=== PATIENT | male | born 1965 | race African-American/Black ===

== ENCOUNTER 2019-07-11 23:58 | Emergency (ER) | payer OTHER ==
[~2019-07-11] VITALS: Ht 175.3 cm; Wt 72.6 kg
--- NOTE | 2019-07-11 23:58 | NUR ---
ED Nurse Note: sitter by bed side
[2019-07-12] VITALS (10 sets, daily range): BP systolic 122–174; BP diastolic 65–93
--- NOTE | 2019-07-12 | NUR ---
ED Nurse Note: Patient was BIBA from home due to SI. Per [employer] patient wants to abbie himself, placed on 5150 by [employer]. Patient states that he is schizophrenic, and was noncompliant with medications. AAO x4, VSS at this time.
--- NOTE | 2019-07-12 00:01 | NUR ---
Eyad sterling in EDM - 07/12/19 at 0022 by [email or web address] ED Nurse Note: Patient was undressed, all belongings were placed in locker #2.
--- NOTE | 2019-07-12 00:02 | NUR ---
ED Nurse Note: Patient was undressed, all belongings were placed in locker #4.
--- NOTE | 2019-07-12 00:07 | NUR ---
ED Nurse Note: [employer] is here
[2019-07-12] MEDS ORDERED: MIRTAZAPINE45 MG ORAL (00:23)
[2019-07-12] MEDS ORDERED: QUETIAPINE FUM200 MG ORAL (00:23)
--- NOTE | 2019-07-12 00:30 | NUR ---
ED Nurse Note: During assessment by Dr. Rios patient becom agitated, combative, started screaming inappropriate words. As soon as left patient jumped out from the bed and started hit him self on the wall, wall was broken, no injuryes were noticed on the patient.
--- NOTE | 2019-07-12 00:32 | Emergency Room Report ---
History of Present Illness General Chief Complaint: Behavioral Complaint Source: Patient (Shelton Rios MD) Present Illness HPI Disclaimer: Please note that this report is being documented using [employer] technology. This can lead to erroneous entry secondary to incorrect interpretation by the dictating instrument. HPI: This is a 53-year-old male with a reported history of schizophrenia presenting to the emergency room for evaluation of changes in his mental status and thoughts of SI/HI. The patient is uncooperative with history and physical exam. Per EMS he was having thoughts of harming himself and others but could not elicit whether or not he had a specific plan. He states he has had been off his meds for some time. He reported hearing voices but could not elicit whether or not they are telling him to do anything or whether he had any visual hallucinations. During our interview the patient became very frustrated and refused to speak with me further. As soon as I left the room I was alerted by nursing staff that he was hitting his head against the wall. He struck the wall so hard as to put a hole in it. Security arrived to restrain the patient and put him in four-point restraints. Haldol was ordered. PMH: Schizophrenia PSH: Could not obtain Allergies: Could not obtain Social Hx: Reports drug use for several decades but does not expand on which drugs. (Shelton Rios MD) Allergies: Coded Allergies: No Known Allergies (Unverified , 07/11/19) Nursing Documentation-[facility] Past Medical History: No History, Except For (Shelton Rios MD) Review of Systems All Other Systems: limited - Patient uncooperative (Shelton Rios MD) Physical Exam Vital Signs Date Time Temp Pulse Resp B/P (MAP) Pulse Ox O2 Delivery O2 Flow Rate FiO2 07/11/19 23:51 97.5 117 19 174/93 (120) 98 Room Air General: Awake and alert, disheveled, agitated HEENT: NC/AT. EOMI. Cardiovascular: Could not assess Resp: Normal work of breathing. Unable to auscultate Abdomen: Could not assess Skin: Intact. No abrasions, laceration or rash over the exposed skin MSK: Normal tone and bulk. Moving all extremities. No obvious deformity. Neuro: Awake and alert. Reports auditory hallucinations. Reports SI/HI. Agitated and combative with staff. (Shelton Rios MD) Medical Decision Making Restraint Attestation I, Shelton Rios MD, have personally evaluated this patient. Laboratory tests have been reviewed and addressed accordingly. The patient is deemed to present a danger to themselves and/or others. This is based on the exam, history ( provided by patient, EMS/[employer] and/or family) and observed or reported behavior. Attempts for non-invasive measures have been considered and/or attempted, however, have been futile. It is in the best interest of the nursing staff, the patient, and others involved in this patient's care that behavioral restraints be applied. Patient evaluation reveals the following: Agitation, violent behavior, combativeness, danger to self and staff (Shelton Rios MD) Diagnostic Impression: Primary Impression: Suicidal intent Additional Impressions: Self-harming behavior Agitation Hypokalemia Cocaine abuse Medical clearance for psychiatric admission ER Course 53-year-old male with history of schizophrenia reportedly not taking his medication presents for evaluation of SI/HI. He was put on 5150 status by police. He is uncooperative with history and physical exam and hitting his head against the wall in the emergency department. He is now in four-point restraints for his own safety and for the safety of the staff. He was given intramuscular Haldol. Start broad metabolic, tox and infectious work-up as well as CT imaging of the head and cervical spine. He will require psychiatric evaluation. Laboratory Tests Test 07/12/19 00:20 White Blood Count 16.7 K/UL (4.8-10.8) H Red Blood Count 5.05 M/UL (4.70-6.10) Hemoglobin 16.3 G/DL (14.2-18.0) Hematocrit 45.2 % (42.0-52.0) Mean Corpuscular Volume 90 FL (80-99) Mean Corpuscular Hemoglobin 32.2 PG (27.0-31.0) H Mean Corpuscular Hemoglobin Concent 36.0 G/DL (32.0-36.0) Red Cell Distribution Width 13.5 % (11.6-14.8) Platelet Count 325 K/UL (150-450) Mean Platelet Volume 7.0 FL (6.5-10.1) Neutrophils (%) (Auto) 61.2 % (45.0-75.0) Lymphocytes (%) (Auto) 29.6 % (20.0-45.0) Monocytes (%) (Auto) 7.6 % (1.0-10.0) Eosinophils (%) (Auto) 0.6 % (0.0-3.0) Basophils (%) (Auto) 1.0 % (0.0-2.0) Urine Color Pale yellow Urine Appearance Clear Urine pH 5 (4.5-8.0) Urine Specific [place] 1.020 (1.005-1.035) Urine Protein 1+ (NEGATIVE) H Urine Glucose (UA) Negative (NEGATIVE) Urine Ketones Negative (NEGATIVE) Urine Blood Negative (NEGATIVE) Urine Nitrite Negative (NEGATIVE) Urine Bilirubin Negative (NEGATIVE) Urine Urobilinogen Normal MG/DL (0.0-1.0) Urine Leukocyte Esterase Negative (NEGATIVE) Urine RBC 0-2 /HPF (0 - 0) H Urine WBC 0-2 /HPF (0 - 0) Urine Squamous Epithelial Cells Occasional /LPF Urine Bacteria Occasional /HPF (NONE) Sodium Level 138 MMOL/L (136-145) Potassium Level 3.0 MMOL/L (3.5-5.1) L Chloride Level 101 MMOL/L (98-107) Carbon Dioxide Level 24 MMOL/L (21-32) Anion Gap 13 mmol/L (5-15) Blood Urea Nitrogen 11 mg/dL (7-18) Creatinine 1.0 MG/DL (0.55-1.30) Estimate Glomerular Filtration Rate > 60 mL/min (>60) Glucose Level 92 MG/DL (74-106) Calcium Level 9.0 MG/DL (8.5-10.1) Total Bilirubin 0.4 MG/DL (0.2-1.0) Aspartate Amino Transferase (AST) 28 U/L (15-37) Alanine Aminotransferase (ALT) 31 U/L (12-78) Alkaline Phosphatase 91 U/L (46-116) Total Protein 8.6 G/DL (6.4-8.2) H Albumin 3.5 G/DL (3.4-5.0) Globulin 5.1 g/dL Albumin/Globulin Ratio 0.7 (1.0-2.7) L Salicylates Level 5.1 ug/mL (2.8-20) Urine Opiates Screen Negative (NEGATIVE) Acetaminophen Level < 2 MCG/ML (10-30) L Urine Barbiturates Screen Negative (NEGATIVE) Phencyclidine (PCP) Screen Negative (NEGATIVE) Urine Amphetamines Screen Negative (NEGATIVE) Urine Benzodiazepines Screen Negative (NEGATIVE) Urine Cocaine Screen Positive (NEGATIVE) H Urine Marijuana (THC) Screen Negative (NEGATIVE) Serum Alcohol 181 mg/dL (Shelton Rios MD) ER Course Please note that the patient CT head was read as no acute disease Patient is further medically cleared and requires further psychiatric evaluation (Alessandro Carrion DO) ER Course Patient examined by me at 1430. He is calm and states he does not need anything but requests food. Titrate offered to patient. Awaiting placement as he is on a 5150 at this time. (Beny London MD) ER Course Is here on 5150 hold. Here for psychiatric evaluation. Has been medically cleared. Patient evaluated by Dr Garcia (psychiatry); agrees that patient is not a danger to self or others. Does not require emergent psychiatric evaluation. Patient is calm and cooperative during exam. 5150 hold will be lifted. Patient cleared from psychiatric standpoint I agree with her assessment that patient can be cleared. Will provide outpatient mental health referrals Labs Test 07/12/19 00:20 07/12/19 09:55 White Blood Count 16.7 K/UL (4.8-10.8) 8.7 K/UL (4.8-10.8) Red Blood Count 5.05 M/UL (4.70-6.10) 5.13 M/UL (4.70-6.10) Hemoglobin 16.3 G/DL (14.2-18.0) 15.7 G/DL (14.2-18.0) Hematocrit 45.2 % (42.0-52.0) 46.3 % (42.0-52.0) Mean Corpuscular Volume 90 FL (80-99) 90 FL (80-99) Mean Corpuscular Hemoglobin 32.2 PG (27.0-31.0) 30.6 PG (27.0-31.0) Mean Corpuscular Hemoglobin Concent 36.0 G/DL (32.0-36.0) 33.8 G/DL (32.0-36.0) Red Cell Distribution Width 13.5 % (11.6-14.8) 13.4 % (11.6-14.8) Platelet Count 325 K/UL (150-450) 297 K/UL (150-450) Mean Platelet Volume 7.0 FL (6.5-10.1) 7.4 FL (6.5-10.1) Neutrophils (%) (Auto) 61.2 % (45.0-75.0) 53.8 % (45.0-75.0) Lymphocytes (%) (Auto) 29.6 % (20.0-45.0) 33.8 % (20.0-45.0) Monocytes (%) (Auto) 7.6 % (1.0-10.0) 10.0 % (1.0-10.0) Eosinophils (%) (Auto) 0.6 % (0.0-3.0) 1.6 % (0.0-3.0) Basophils (%) (Auto) 1.0 % (0.0-2.0) 0.8 % (0.0-2.0) Urine Color Pale yellow Urine Appearance Clear Urine pH 5 (4.5-8.0) Urine Specific [place] 1.020 (1.005-1.035) Urine Protein 1+ (NEGATIVE) Urine Glucose (UA) Negative (NEGATIVE) Urine Ketones Negative (NEGATIVE) Urine Blood Negative (NEGATIVE) Urine Nitrite Negative (NEGATIVE) Urine Bilirubin Negative (NEGATIVE) Urine Urobilinogen Normal MG/DL (0.0-1.0) Urine Leukocyte Esterase Negative (NEGATIVE) Urine RBC 0-2 /HPF (0 - 0) Urine WBC 0-2 /HPF (0 - 0) Urine Squamous Epithelial Cells Occasional /LPF Urine Bacteria Occasional /HPF (NONE) Sodium Level 138 MMOL/L (136-145) Potassium Level 3.0 MMOL/L (3.5-5.1) 4.0 MMOL/L (3.5-5.1) Chloride Level 101 MMOL/L (98-107) Carbon Dioxide Level 24 MMOL/L (21-32) Anion Gap 13 mmol/L (5-15) Blood Urea Nitrogen 11 mg/dL (7-18) Creatinine 1.0 MG/DL (0.55-1.30) Estimat Glomerular Filtration Rate > 60 mL/min (>60) Glucose Level 92 MG/DL (74-106) Calcium Level 9.0 MG/DL (8.5-10.1) Total Bilirubin 0.4 MG/DL (0.2-1.0) Aspartate Amino Transf (AST/SGOT) 28 U/L (15-37) Alanine Aminotransferase (ALT/SGPT) 31 U/L (12-78) Alkaline Phosphatase 91 U/L (46-116) Total Protein 8.6 G/DL (6.4-8.2) Albumin 3.5 G/DL (3.4-5.0) Globulin 5.1 g/dL Albumin/Globulin Ratio 0.7 (1.0-2.7) Salicylates Level 5.1 ug/mL (2.8-20) Urine Opiates Screen Negative (NEGATIVE) Acetaminophen Level < 2 MCG/ML (10-30) Urine Barbiturates Screen Negative (NEGATIVE) Phencyclidine (PCP) Screen Negative (NEGATIVE) Urine Amphetamines Screen Negative (NEGATIVE) Urine Benzodiazepines Screen Negative (NEGATIVE) Urine Cocaine Screen Positive (NEGATIVE) Urine Marijuana (THC) Screen Negative (NEGATIVE) Serum Alcohol 181 mg/dL < 3 mg/dL (Farooq Woodard MD) CT/MRI/US Diagnostic Results CT/MRI/US Diagnostic Results : Impression CT head no acute disease (Alessandro Carrion DO) Reevaluation Time: 05:46 Last Vital Signs Date Time Temp Pulse Resp B/P (MAP) Pulse Ox O2 Delivery O2 Flow Rate FiO2 07/12/19 00:02 97.5 19 174/93 98 Room Air 07/12/19 00:02 117 Reevaluation Impression Urine tox screen is positive for cocaine. Labs otherwise are largely unremarkable except for some mild hypokalemia. We will repeat with oral tablets. (Shelton Rios MD) Status: improved (Alessandro Carrion DO) Status: improved (Beny London MD) Status: improved (Farooq Woodard MD) Disposition: HOME, SELF-CARE Condition: Stable Shelton Rios MD Jul 12, 2019 00:32 Alessandro Carrion DO Jul 12, 2019 09:37 Beny London MD Jul 12, 2019 14:34 Farooq Woodard MD Jul 13, 2019 16:00
[2019-07-12] MEDS ORDERED: Haloperidol 5mg/ml Inj IM ONE (00:45)
[2019-07-12 00:55] LABS: APPEARANCE,URINE CLEAR; BILIRUBIN, URINE NEGATIVE (NEGATIVE); COLOR,URINE PALE YELLOW; GLUCOSE, URINE (UA) NEGATIVE (NEGATIVE); KETONES,URINE NEGATIVE (NEGATIVE); LEUKOCYTE ESTERASE ,URINE NEGATIVE (NEGATIVE); NITRITE,URINE NEGATIVE (NEGATIVE); PH,URINE 5 (4.5-8.0); PROTEIN,URINE 1+ (NEGATIVE); UROBILINOGEN,URINE NORMAL MG/DL (0.0-1.0)
[2019-07-12 00:57] LABS: EOSINOPHILS % (AUTO) 0.6 % (0.0-3.0); HEMATOCRIT 45.2 % (42.0-52.0); HEMOGLOBIN 16.3 G/DL (14.2-18.0); LYMPHOCYTES % (AUTO) 29.6 % (20.0-45.0); MEAN CORPUSCULAR VOLUME 90 FL (80-99); MONOCYTES % (AUTO) 7.6 % (1.0-10.0); NEUTROPHILS % (AUTO) 61.2 % (45.0-75.0); PLATELET COUNT 325 K/UL (150-450); RED BLOOD COUNT 5.05 M/UL (4.70-6.10); RED CELL DISTRIBUTION WIDTH 13.5 % (11.6-14.8); WHITE BLOOD COUNT 16.7 K/UL (4.8-10.8)
[2019-07-12 01:07] LABS: ANION GAP 13 mmol/L (5-15); BLOOD UREA NITROGEN 11 mg/dL (7-18); CARBON DIOXIDE 24 MMOL/L (21-32); CHLORIDE 101 MMOL/L (98-107); SODIUM 138 MMOL/L (136-145)
[2019-07-12 01:12] LABS: ALANINE AMINOTRANSFERASE 31 U/L (12-78); ALBUMIN 3.5 G/DL (3.4-5.0); ALBUMIN/GLOBULIN RATIO 0.7 (1.0-2.7); ALKALINE PHOSPHATASE 91 U/L (46-116); ASPARTATE AMINO TRANSFERASE 28 U/L (15-37); BILIRUBIN,TOTAL 0.4 MG/DL (0.2-1.0)
[2019-07-12] MEDS ORDERED: DiphenhydrAMINE 50mg/ml Inj IVP ONE (01:15)
--- NOTE | 2019-07-12 03:00 | NUR ---
Asleep, sitter at bedside.
--- NOTE | 2019-07-12 04:00 | NUR ---
ED Nurse Note: received report from clayton orellana. pt appears more calm during interactions. pt is cooperative with care. pt was given water and additional blankets. vss, will continue to monitor and await further orders. sitter at bedside.
--- NOTE | 2019-07-12 05:17 | NUR ---
Still asleep, no acute distress noted. SWitter still at bedside.
--- NOTE | 2019-07-12 06:01 | NUR ---
ED Nurse Note: pt is calmly resting in bed, pt aware that he needs to have a CT completed.
--- NOTE | 2019-07-12 07:20 | NUR ---
Note hallie in EDM - 07/12/19 at 0849 by JENAE ED Nurse Note: Patient was transferred from one room to another. Able to ambulate without assistance. Patient stated that he is feeling okay at this time. No verbalization of hurting himself or others. Continued monitoring the patient. No sitter at bedside.
--- NOTE | 2019-07-12 07:39 | NUR ---
ED Nurse Note: Patient went to the CT scan via in bed, staff at bedside
--- NOTE | 2019-07-12 07:53 | NUR ---
ED Nurse Note: Patient went back to the room, laying in bed, went back to sleep.
--- NOTE | 2019-07-12 08:39 | NUR ---
Note hallie in EDM - 07/12/19 at 0850 by PUNEETATALTORRI ED Nurse Note: Patient laying in bed, asleep. No respiratory distress noted. No sitter at bedside
--- NOTE | 2019-07-12 08:39 | NUR ---
ED Nurse Note: Patient laying in bed, asleep. No respiratory distress noted. Continue to monitor
--- NOTE | 2019-07-12 09:01 | Diagnostic Imaging Report ---
EXAM: CT Head Without Intravenous Contrast CLINICAL HISTORY: INJ TECHNIQUE: Axial computed tomography images of the head brain without intravenous contrast. CTDI is 60 mGy and DLP is 1262 mGy-cm. One or more of the following dose reduction techniques were used: automated exposure control, adjustment of the mA and or kV according to patient size, use of iterative reconstruction technique. Coronal reformatted images were created and reviewed. COMPARISON: No relevant prior studies available. FINDINGS: Brain: Unremarkable. No evidence of acute intracranial hemorrhage. No significant white matter disease. No edema. No mass effect or midline shift. Ventricles: Unremarkable. No ventriculomegaly. Bones joints: Unremarkable. No depressed skull fracture. Soft tissues: Unremarkable. Sinuses: Unremarkable as visualized. No acute sinusitis. Mastoid air cells: Unremarkable as visualized. No mastoid effusion. IMPRESSION: Unremarkable noncontrast CT of the head brain.
--- NOTE | 2019-07-12 09:04 | Diagnostic Imaging Report ---
EXAM: CT Cervical Spine Without Intravenous Contrast CLINICAL HISTORY: Injury TECHNIQUE: Axial computed tomography images of the cervical spine without intravenous contrast. Sagittal and coronal reformatted images were created and reviewed. CTDI is 32.7 mGy and DLP is 725.90 mGy-cm. One or more of the following dose reduction techniques were used: automated exposure control, adjustment of the mA and or kV according to patient size, use of iterative reconstruction technique. COMPARISON: No relevant prior studies available. FINDINGS: Vertebrae: Unremarkable. No visible displaced fracture. Cervical body heights are preserved. The atlantodens interval appears unremarkable. Discs spinal canal neural foramina: Mild degenerative disc space loss and endplate osteophytes, most prominent at C5-6 and C6-7. Mild osseous stenosis of the neural foramina bilaterally at these levels. Soft tissues: Unremarkable. IMPRESSION: 1. No evidence of acute fracture or malalignment in the cervical spine. 2. Mild degenerative changes, most prominent at C5-6 and C6-7.
--- NOTE | 2019-07-12 10:02 | NUR ---
ED Nurse Note: Patient laying in bed. Patient alert and oriented. Patient denied suicidal thoughts at this time. IV insterted, drawn blood. Patient eating braekfast at this time. No aggressive behavior noted.
[2019-07-12 10:12] LABS: BASOPHILS % (AUTO) 0.8 % (0.0-2.0); EOSINOPHILS % (AUTO) 1.6 % (0.0-3.0); HEMATOCRIT 46.3 % (42.0-52.0); HEMOGLOBIN 15.7 G/DL (14.2-18.0); LYMPHOCYTES % (AUTO) 33.8 % (20.0-45.0); MEAN CORPUSCULAR VOLUME 90 FL (80-99); NEUTROPHILS % (AUTO) 53.8 % (45.0-75.0); PLATELET COUNT 297 K/UL (150-450); RED BLOOD COUNT 5.13 M/UL (4.70-6.10); RED CELL DISTRIBUTION WIDTH 13.4 % (11.6-14.8); WHITE BLOOD COUNT 8.7 K/UL (4.8-10.8)
--- NOTE | 2019-07-12 11:49 | NUR ---
ED Nurse Note: lunch tray provide.
--- NOTE | 2019-07-12 13:00 | NUR ---
ED Nurse Note: Patient awake, sitting in bed, provided lunch. eating without difficulty. no verbalization of suicidal thoughts noted
--- NOTE | 2019-07-12 14:20 | NUR ---
ED Nurse Note: Patient laying in bed, asleep.
--- NOTE | 2019-07-12 17:00 | NUR ---
ED Nurse Note: patient awake, ambulatory. Went to the restroom. patient calm. no suicidal thoughts noted at this time
--- NOTE | 2019-07-12 19:18 | NUR ---
ED Nurse Note: Patient sleeping, woken for check of vital signs and assessment. Denies thoughts iof harm to self or others. Requesting water water provided. Easily rousable. Uncomplaining of pain
--- NOTE | 2019-07-12 21:30 | NUR ---
ED Nurse Note: Patient sleeping. Easily rousable.
--- NOTE | 2019-07-13 01:17 | NUR ---
ED Nurse Note: Patient sleeping easily rousable.
[2019-07-13 01:40] VITALS: BP 142/82
[2019-07-13 02:35] VITALS: BP 142/84
[2019-07-13 04:23] VITALS: BP 146/78
[2019-07-13 06:21] VITALS: BP 134/78
--- NOTE | 2019-07-13 07:30 | NUR ---
ED Nurse Note:pt. is sleeping no signs of distress noted, sitter is at bedside
--- NOTE | 2019-07-13 08:59 | NUR ---
ED Nurse Note:breakfast ordered , sitter is at the bed side
[2019-07-13 09:00] VITALS: BP 131/80
--- NOTE | 2019-07-13 10:45 | NUR ---
ED Nurse Note:sitter is at the bedside, pt. is quiet continue observation
--- NOTE | 2019-07-13 13:04 | NUR ---
ED Nurse Note:pt. ate his lunch, sitter is at bedside
--- NOTE | 2019-07-13 14:45 | NUR ---
ED Nurse Note: hold was lifted by dr. Garcia-evaluation was done in the room in my presence, pt. douglas david SI at this time Addendum: 07/13/19 at 1458 by SAVANA ED Nurse Note: d/c shamar stephens
--- NOTE | 2019-07-13 15:05 | NUR ---
ER DISCHARGE NOTE: Patient is cleared to be discharged per ERMD, pt is aox4, on room air, with stable vital signs. pt was given dc instructions, pt was able to verbalize understanding, pt is able to ambulate with steady gait. pt took all belongings, given bus tockens for transportation home, called his safety security officer to notify
[2019-07-13 15:24] VITALS: BP 131/80
--- NOTE | 2019-07-14 20:00 | Consultation ---
DATE OF CONSULTATION: 07/13/2019 CONSULTING PHYSICIAN: Carla Garcia M.D. HISTORY OF PRESENT ILLNESS: The patient is a 53-year-old male who was admitted to the ER on a 5150. The patient apparently relapsed on alcohol and cocaine and destabilized. The patient has been in the ER for the past one and half days presents with anxiety. Denies any suicidal or homicidal ideation. Would like to be discharged home to his mother. He has a psychiatrist outside of the hospital and takes Seroquel. He denied any suicidal or homicidal ideation. The patient is in treatment. PAST PSYCHIATRIC HISTORY: Significant for history of anxiety disorder, bipolar disorder. He has had several psychiatric hospitalizations. Denies any suicide attempt. PAST MEDICAL HISTORY: High blood pressure SUBSTANCE ABUSE HISTORY: Significant for cocaine, alcohol MENTAL STATUS EXAMINATION: The patient is alert, oriented times self, place, and situation. Mood is neutral. Affect is full range, congruent with mood. Thought process, linear and goal oriented. Thought content, no suicidal or homicidal ideation. Cognition is intact. Insight and judgment is fair. ASSESSMENT: Union I Cocaine abuse. Alcohol abuse. Bipolar disorder. Union II Deferred. Union III As above. Union IV Low. Union V 50. PLAN: 1. The patient will be continued on Seroquel. 2. Refer him to outpatient program. 3. Encourage him to go to the hospital. 4. Discontinue 5150. 5. The patient will be discharged. Carla Garcia M.D. DR: MAVIS JOB#: [id number] CC: ALON
== END 2019-07-13 15:27 | disposition home or self-care (01) ==
LOC: EDBD 23:58 → EMR 07-12 00:35
DX: F14.10 Cocaine abuse, uncomplicated (principal); R45.851 Suicidal ideations; Z78.1 Physical restraint status; R45.1 Restlessness and agitation; E87.6 Hypokalemia; F20.9 Schizophrenia, unspecified; F41.9 Anxiety disorder, unspecified; F31.9 Bipolar disorder, unspecified; F10.10 Alcohol abuse, uncomplicated
CPT/HCPCS: 36415; 70450; 72125; 80053; 80196; 80307; 80329; 81003; 84132; 85025; 96372; J1630; Z7502; 99285; J8499